=== PATIENT | male | born 1985 | race Caucasian/White ===

== ENCOUNTER 2019-01-23 15:32 | Emergency (ER) | payer OTHER ==
[~2019-01-23] VITALS: Ht 180.3 cm; Wt 77.1 kg
[~2019-01-23 15:32] MED LIST: CEPH500 PO; CLIN150 PO; HYDACE5 PO; Naprosyn500 MG PO; RXHYDACE PO; Veetids 500500 MG PO
== END 2019-01-23 17:09 | disposition home or self-care (01) ==
LOC: ER 15:32
DX: S62.001A Unspecified fracture of navicular [scaphoid] bone of right wrist, initial encounter for closed fracture (principal); S52.125A Nondisplaced fracture of head of left radius, initial encounter for closed fracture; S70.01XA Contusion of right hip, initial encounter; S40.011A Contusion of right shoulder, initial encounter; S80.211A Abrasion, right knee, initial encounter; Z79.899 Other long term (current) drug therapy; V29.9XXA Motorcycle rider (driver) (passenger) injured in unspecified traffic accident, initial encounter
CPT/HCPCS: 29105; 29125; 73030; 73080; 73110; 73502; 99283-25

== ENCOUNTER 2019-03-01 13:46 | Day surgery (SDC) | payer OTHER ==
[~2019-03-01] VITALS: Ht 180.3 cm; Wt 74.9 kg
--- NOTE | 2019-03-01 15:08 | NUR ---
03/01/19 1507 Jodi Barrett RECEIVED REPORT FROM JOSE ANDERSEN.
--- NOTE | 2019-03-01 17:11 | NUR ---
03/01/19 1711 Kiersten Jara PT INTO RECLINER WITHOUT DIFFICULTY. PT C/O 09/27 PAIN IN RIGHT WRIST. PT DENIES IV PAIN MEDICATION AT THIS TIME. WILL MEDICATE WITH PO PAIN MED PRIOR TO DC. TOLERATING PO COOKIES WELL. ENZO AT CHAIRSIDE. ICE AND ELEVATION IMPLEMENTED. PT DENIES NAUSEA AT THIS TIME.
== END 2019-03-01 17:30 | disposition home or self-care (01) ==
LOC: ORSCSDS 13:46
PROVIDERS: Orthopaedic Surgery
PROC: 0PSM04Z Reposition Right Carpal with Internal Fixation Device, Open Approach (ICD-10-PCS; principal; 2019-03-01 15:00)
DX: S62.001A Unspecified fracture of navicular [scaphoid] bone of right wrist, initial encounter for closed fracture (principal)
CPT/HCPCS: C1713; C1769; J0690; J1100; J2250; J2405; J2704; J2710; J2795; J3010; J7120

== ENCOUNTER 2020-04-05 12:50 | Day surgery (SDC) | payer OTHER ==
[~2020-04-05] VITALS: Ht 180.3 cm; Wt 80.9 kg
--- NOTE | 2020-04-05 17:27 | NUR ---
04/05/20 1727 MIRTA BROOKS PT UP TO RECLINER WITH SBA. TROM IN PLACE. FOOT ELEVATED ON PILLOW. PT TOLERATING PO INTAKE. MEDICATED FOR 9/10 PAIN WITH IV FENTANYL
== END 2020-04-05 17:47 | disposition home or self-care (01) ==
LOC: ORSCSDS 12:50
PROVIDERS: Orthopaedic Surgery
PROC: 0SQD4ZZ Repair Left Knee Joint, Percutaneous Endoscopic Approach (ICD-10-PCS; principal; 2020-04-05 14:00)
PROC: 0MRP47Z Replacement of Left Knee Bursa and Ligament with Autologous Tissue Substitute, Percutaneous Endoscopic Approach (ICD-10-PCS; principal; 2020-04-05 14:00)
DX: S83.512A Sprain of anterior cruciate ligament of left knee, initial encounter (principal); S83.242A Other tear of medial meniscus, current injury, left knee, initial encounter; S83.282A Other tear of lateral meniscus, current injury, left knee, initial encounter; M22.42 Chondromalacia patellae, left knee; Z87.891 Personal history of nicotine dependence
CPT/HCPCS: A9270-GY; C1713; C1776; J0171; J0690; J1100; J1885; J2250; J2405; J2704; J2795; J3010; J7120

== ENCOUNTER 2020-10-06 23:32 | Emergency (ER) | payer OTHER ==
[~2020-10-06] VITALS: Ht 180.3 cm; Wt 77.1 kg
[2020-10-07 00:06] LABS: BASOPHILS ABSOLUTE AUTO 0.04 K/mm3 (0.00-0.23); BASOPHILS PERCENT AUTO 1 % (0-2); EOSINOPHILS ABSOLUTE AUTO 0.04 K/mm3 (0.00-0.68); EOSINOPHILS PERCENT AUTO 1 % (0-6); Hematocrit 39.3 % (37.0-53.0); Hemoglobin 13.4 g/dL (13.5-17.5); IMMATURE GRAN ABSOLUTE AUTO 0.02 K/mm3 (0.00-0.10); IMMATURE GRAN PERCENT AUTO 0 % (0-1); LYMPHOCYTES PERCENT AUTO 33 % (21-46); MONOCYTES ABSOLUTE AUTO 0.48 K/mm3 (0.16-1.47); MONOCYTES PERCENT AUTO 7 % (4-13); Mean Corpuscular HGB 29.1 pg (26.0-34.0); Mean Corpuscular HGB Conc 34.1 g/dL (31.5-36.5); Mean Corpuscular Volume 85 fL (80-100); Mean Platelet Volume 8.7 fL (9.1-12.4); NEUTROPHILS ABSOLUTE AUTO 4.07 K/mm3 (1.96-9.15); NEUTROPHILS PERCENT AUTO 59 % (41-73); Platelet Count 288 K/mm3 (150-400); RDW Coefficient Variation 12.1 % (11.7-14.2); RDW Standard Deviation 37.7 fL (35.1-46.3); White Blood Cell Count 6.95 K/mm3 (4.00-11.30)
[2020-10-07 00:21] LABS: Anion Gap 4 mmol/L (6-16); Blood Urea Nitrogen 16 mg/dL (8-24); CO2, Blood 27 mmol/L (21-32); Calcium, Blood 8.7 mg/dL (8.5-10.1); Chloride, Blood 109 mmol/L (98-108); Creatinine, Blood 1.07 mg/dL (0.60-1.20); Glomerular Filtration Rate >60 (60-); Glucose, Blood 86 mg/dL (70-99); Potassium, Blood 3.6 mmol/L (3.5-5.5); Sodium, Blood 140 mmol/L (136-145)
[2020-10-07 02:04] LABS: SARS-Cov-2 (COVID-19) PCR, MMC NEGATIVE (NEGATIVE)
== END 2020-10-07 01:32 | disposition short-term general hospital (02) ==
LOC: ER 23:32
PROVIDERS: Emergency Medicine
DX: T23.001A Burn of unspecified degree of right hand, unspecified site, initial encounter (principal); T31.0 Burns involving less than 10% of body surface; Z88.8 Allergy status to other drugs, medicaments and biological substances; Z20.822 Contact with and (suspected) exposure to COVID-19
CPT/HCPCS: 80048; 85025; 96374; 96375; 99284; J1170; J2405; J7030; U0004

== ENCOUNTER 2022-09-15 11:16 | Emergency (ER) | payer OTHER ==
[~2022-09-15] VITALS: Ht 180.3 cm; Wt 74.8 kg
[2022-09-15] MEDS ORDERED: OXYACE7.5T PO (13:40)
[2022-09-15 13:45] VITALS: BP 114/76
== END 2022-09-15 15:09 | disposition home or self-care (01) ==
LOC: ER 11:16
DX: S27.0XXA Traumatic pneumothorax, initial encounter (principal); S22.32XA Fracture of one rib, left side, initial encounter for closed fracture; S62.101A Fracture of unspecified carpal bone, right wrist, initial encounter for closed fracture; Z88.8 Allergy status to other drugs, medicaments and biological substances; Z88.6 Allergy status to analgesic agent; V86.56XA Driver of dirt bike or motor/cross bike injured in nontraffic accident, initial encounter
CPT/HCPCS: 71101; 71260; 73110; J2270; J2405; Q9967

== ENCOUNTER 2022-09-23 19:49 | Emergency (ER) | payer OTHER ==
[~2022-09-23] VITALS: Ht 180.3 cm; Wt 74.8 kg
[~2022-09-23 19:49] MED LIST changes: +OXYACE7.5T PO
[2022-09-23 20:33] LABS: Hematocrit 43.9 % (37.0-53.0); Hemoglobin 14.9 g/dL (13.5-17.5); Mean Corpuscular HGB 28.6 pg (26.0-34.0); Mean Corpuscular HGB Conc 33.9 g/dL (31.5-36.5); Mean Corpuscular Volume 84 fL (80-100); Mean Platelet Volume 8.4 fL (9.1-12.4); Platelet Count 309 K/mm3 (150-400); RDW Coefficient Variation 11.7 % (11.7-14.2); RDW Standard Deviation 35.7 fL (35.1-46.3); Red Blood Cell Count 5.21 M/mm3 (4.30-5.90); White Blood Cell Count 10.21 K/mm3 (4.00-11.30)
[2022-09-23 20:58] LABS: Albumin, Blood 4.6 g/dL (3.4-5.0); Albumin/Globulin Ratio 1.1 (0.8-1.8); Bilirubin, Total 0.8 mg/dL (0.1-1.0); Bun/Creatinine Ratio 31.1 (12.0-20.0); Calcium, Blood 9.9 mg/dL (8.5-10.1); Creatinine, Blood 0.8 mg/dL (0.60-1.20); Globulin, Blood 4.2 g/dL (2.2-4.0); Potassium, Blood 4.1 mmol/L (3.5-5.5); Total Protein, Blood 8.8 g/dL (6.4-8.2)
[2022-09-23 21:21] LABS: BAND PERCENT MAN 2 % (0-8); BASOPHILS PERCENT MAN 0 % (0-2); EOSINOPHILS PERCENT MAN 1 % (0-6); LYMPHOCYTES % ATYPICAL MANUAL 2 % (0-0); LYMPHOCYTES ABSOLUTE MAN 2.65 K/mm3 (0.84-5.20); LYMPHOCYTES PERCENT MAN 24 % (21-46); MONOCYTES ABSOLUTE MAN 0.51 K/mm3 (0.16-1.47); MONOCYTES PERCENT MAN 5 % (4-13); NEUTROPHILS ABSOLUTE MAN 6.94 K/mm3 (1.96-9.15); SEG NEUTROPHILS PERCENT MAN 66 % (41-73); TOTAL CELLS COUNTED 100
[2022-09-23 23:30] VITALS: BP 124/91
== END 2022-09-23 23:38 | disposition home or self-care (01) ==
LOC: ER 19:49
PROVIDERS: Student in an Organized Health Care Education/Training Program
DX: R11.10 Vomiting, unspecified (principal); Z88.8 Allergy status to other drugs, medicaments and biological substances; Z87.19 Personal history of other diseases of the digestive system
CPT/HCPCS: 71046; 80053; 85025; 86850; 86900; 86901; 96361; 96374; 99285-25; A9270; J1885; J7030

== ENCOUNTER 2024-04-20 11:28 | Emergency (ER) | payer OTHER ==
[~2024-04-20] VITALS: Ht 172.7 cm; Wt 83.9 kg
[2024-04-20 12:17] VITALS: BP 122/63
[2024-04-20] MEDS ORDERED: HYDROcodone 5-APAP 325 TAB PO ONE (12:40)
[2024-04-20] MEDS ORDERED: HYDR1TAB94 PO ×2 (13:32→15:03)
[2024-04-20] MEDS ORDERED: Robaxin750 MG PO (13:32)
== END 2024-04-20 13:38 | disposition home or self-care (01) ==
LOC: ER 11:28
DX: S13.4XXA Sprain of ligaments of cervical spine, initial encounter (principal); Y93.72 Activity, wrestling; Z88.8 Allergy status to other drugs, medicaments and biological substances
CPT/HCPCS: 72125; 99283-25; A9270